=== PATIENT | female | born 1995 | race Caucasian/White ===

== ENCOUNTER 2018-12-11 16:16 | Emergency (ER) | payer OTHER ==
[~2018-12-11] VITALS: Ht 157.5 cm; Wt 60.9 kg
[2018-12-11 16:20] VITALS: Ht 157.5 cm; Wt 60.9 kg
[2018-12-11] MEDS ORDERED: ONDANSETRON (ODT) 4 MG TAB ODT STA (16:38)
[2018-12-11] MEDS ORDERED: LIDOCAINE/MYLANTA 40 ML BTL PO STA (16:38)
[2018-12-11] MEDS ORDERED: NITR-58 PO (19:19)
[2018-12-11] MEDS ORDERED: ONDA4TAB14 PO (19:19)
[2018-12-11] MEDS ORDERED: BISM262O23 PO (19:21)
--- NOTE | 2018-12-11 19:22 | ERD ---
ER Documentation Chief Complaint Chief Complaint ABD PAIN WITH VOMITING/DIARRHEA TODAY ROS All systems reviewed and are negative except as per history of present illness. Medications Home Meds Active Scripts Bismuth Subsalicylate* (Pepto-Bismol*) 262 Mg/15 Ml Oral.susp, 15 ML PO Q6H PRN for DIARRHEA for 7 Days, #1 BOTTLE Prov:ABDOULAYE GIRARD DO 12/11/18 Nitrofurantoin Monohyd Macrocr* (Macrobid*) 100 Mg Capsr, 100 MG PO BID for uti for 5 Days, #10 CAP Prov:ABDOULAYE GIRARD DO 12/11/18 Ondansetron (Ondansetron Odt) 4 Mg Tab.rapdis, 4 MG PO Q6H PRN for NAUSEA AND/OR VOMITING, #10 TAB Prov:ABDOULAYE GIRARD DO 12/11/18 Allergies Allergies: Coded Allergies: No Known Allergy (Unverified , 12/11/18) PMhx/Soc Medical and Surgical Hx: pt denies Medical Hx, pt denies Surgical Hx Hx Alcohol Use: No Hx Substance Use: No Hx Tobacco Use: No Smoking Status: Never smoker Physical Exam Vitals Vital Signs Date Temp Pulse Resp B/P (MAP) Pulse Ox O2 O2 Flow FiO2 Time Delivery Rate 12/11/18 98.4 83 16 133/65 98 16:20 (87) Physical Exam Const: No acute distress Head: Atraumatic Eyes: Normal Conjunctiva ENT: Normal External Ears, Nose and Mouth. Neck: Full range of motion. No meningismus. Resp: Clear to auscultation bilaterally Cardio: Regular rate and rhythm, no murmurs Abd: Soft, non tender, non distended. Normal bowel sounds Skin: No petechiae or rashes Back: No midline or flank tenderness Ext: No cyanosis, or edema Neur: Awake and alert Psych: Normal Mood and Affect Result Diagram: 12/11/18 1825 12/11/18 1653 Results 24 hrs Laboratory Tests Test 12/11/18 16:53 12/11/18 16:56 12/11/18 18:25 Urine Color ANNALISA Urine Clarity CLOUDY Urine pH 6.0 Urine Specific [place] 1.027 Urine Ketones 2+ mg/dL Urine Nitrite NEGATIVE mg/dL Urine Bilirubin NEGATIVE mg/dL Urine Urobilinogen 1+ mg/dL Urine Leukocyte Esterase 3+ Jonatan/ul Urine Microscopic RBC 4 /HPF Urine Microscopic WBC 11 /HPF Urine Squamous Epithelial Cells MODERATE /HPF Urine Bacteria FEW /HPF Urine Mucus MANY /HPF Urine Hemoglobin NEGATIVE mg/dL Urine Glucose NEGATIVE mg/dL Urine Total Protein 1+ mg/dl Sodium Level 140 mmol/L Potassium Level 4.4 mmol/L Chloride Level 106 mmol/L Carbon Dioxide Level 21 mmol/L Anion Gap 13 Blood Urea Nitrogen 13 mg/dl Creatinine 0.42 mg/dl Est Glomerular Filtrat > 60 mL/min Rate mL/min Glucose Level 111 mg/dl Calcium Level 9.5 mg/dl Total Bilirubin 0.7 mg/dl Direct Bilirubin 0.00 mg/dl Indirect Bilirubin 0.7 mg/dl Aspartate Amino 39 IU/L Transf (AST/SGOT) Alanine 19 IU/L Aminotransferase (ALT/SGPT) Alkaline Phosphatase 101 IU/L Total Protein 9.1 g/dl Albumin 4.9 g/dl Globulin 4.20 g/dl Albumin/Globulin Ratio 1.16 Lipase 36 U/L POC Beta HCG, Qualitative NEGATIVE White Blood Count 13.0 10^3/ul Red Blood Count 5.11 10^6/ul Hemoglobin 15.2 g/dl Hematocrit 44.0 % Mean Corpuscular Volume 86.1 fl Mean Corpuscular Hemoglobin 29.7 pg Mean Corpuscular 34.5 g/dl Hemoglobin Concent Red Cell Distribution Width 12.5 % Platelet Count 315 10^3/UL Mean Platelet Volume 8.9 fl Immature Granulocytes % 0.300 % Neutrophils % 87.9 % Lymphocytes % 9.5 % Monocytes % 2.1 % Eosinophils % 0.0 % Basophils % 0.2 % Nucleated Red Blood Cells % 0.0 /100WBC Immature Granulocytes # 0.040 10^3/ul Neutrophils # 11.4 10^3/ul Lymphocytes # 1.2 10^3/ul Monocytes # 0.3 10^3/ul Eosinophils # 0.0 10^3/ul Basophils # 0.0 10^3/ul Nucleated Red Blood Cells # 0.0 10^3/ul Current Medications Medications Dose Sig/Thi Start Time Status Last (Trade) Ordered Route PRN Stop Time Admin Dose Reason Admin 40 ml ONCE STAT 12/11/18 DC 12/11/18 Miscellaneous PO 16:38 16:59 Medication 12/11/18 16:40 (Gi Cocktail (2)) Ondansetron 4 mg ONCE STAT 12/11/18 DC 12/11/18 [facility] (Mana ODT 16:38 16:59 Odt) 12/11/18 16:40 Departure Diagnosis: Primary Impression: Abdominal pain Abdominal location: upper abdomen, unspecified Qualified Codes: R10.10 - Upper abdominal pain, unspecified Condition: Fair Patient Instructions: Abdominal Pain, Understanding Urinary Tract Infections (UTIs) Referrals: [facility] YOU HAVE RECEIVED A MEDICAL SCREENING EXAM AND THE RESULTS INDICATE THAT YOU DO NOT HAVE A CONDITION THAT REQUIRES URGENT TREATMENT IN THE EMERGENCY DEPARTMENT. FURTHER EVALUATION AND TREATMENT OF YOUR CONDITION CAN WAIT UNTIL YOU ARE SEEN IN YOUR DOCTORS OFFICE WITHIN THE NEXT 1-2 DAYS. IT IS YOUR RESPONSIBILITY TO MAKE AN APPOINTMENT FOR FOLOW-UP CARE. IF YOU HAVE A PRIMARY DOCTOR --you should call your primary doctor and schedule an appointment IF YOU DO NOT HAVE A PRIMARY DOCTOR YOU CAN CALL OUR PHYSICIAN REFERRAL HOTLINE AT IF YOU CAN NOT AFFORD TO SEE A PHYSICIAN YOU CAN CHOSE FROM THE FOLLOWING [facility] [address] [facility] [address] [employer] [facility] [address] [facility] [address] [facility] [address] [facility]. [facility]. [address] Additional Instructions: Call your primary care doctor TOMORROW for an appointment during the next 1-2 days.See the doctor sooner or return here if your condition worsens before your appointment time. ABDOULAYE GIRARD DO December 11, 2018 19:22
[2018-12-11 19:30] VITALS: BP 121/67; PULSE 87; RESP 16
== END 2018-12-11 19:30 | disposition home or self-care (01) ==
LOC: FTE 16:16
DX: R10.9 Unspecified abdominal pain (principal); R11.10 Vomiting, unspecified
CPT/HCPCS: 36415; 76705; 80053; 81001; 81025; 83690; 85025; Z7502; Z7610